=== PATIENT | female | born 1940 | race Caucasian/White ===

== ENCOUNTER 2018-02-18 09:54 | Emergency (ER) | payer MEDICARE ==
[~2018-02-18] VITALS: Ht 177.8 cm; Wt 81.3 kg
[2018-02-18 09:57] VITALS: BP 196/82; PULSE 70; RESP 16; TEMP 97.4; O2SAT 98
[2018-02-18] MEDS ORDERED: PROT40TA PO (10:11)
[2018-02-18] MEDS ORDERED: LOSA100T PO (10:11)
[2018-02-18] MEDS ORDERED: LEVO100T5 PO (10:11)
[2018-02-18] MEDS ORDERED: DICL75TA PO (10:11)
[2018-02-18] MEDS ORDERED: FOSA70TA PO (10:11)
[2018-02-18] MEDS ORDERED: IBUPROFEN 600 MG TAB PO ONE (10:30)
--- NOTE | 2018-02-18 10:49 | PD ---
HPI Chief Complaint: Injury Time Seen by Provider: 10:16 Travel History International Travel<30 days: No Contact w/Intl Traveler<30days: No Traveled to known affect area: No History of Present Illness HPI 77-year-old female presents emergency department for evaluation of right wrist pain and low back pain after mechanical fall that occurred today. Says she was in the garage when she slipped and fell landing on her back and wrist. Says that she initially went to urgent care but they recommended she come to the emergency department for further evaluation and treatment. Patient points to the wrist with most pain is. Denies radiation of pain. Pain is moderate in severity. Denies numbness or tingling the extremity. Denies pain elsewhere on the extremity. Patient points lower back that is worse with movement, decreases with rest. Denies loss of bowel or bladder function, numbness tingling the extremities Saddle anesthesia. Patient says that her low back pain is mild in severity and nonradiating. PFSH Past Medical History Arthritis: Yes Pneumonia: Yes Tetanus Vaccination: < 5 Years Influenza Vaccination: Yes Past Surgical History Appendectomy: Yes Section: Yes (X2) Hysterectomy: Yes Tonsillectomy: Yes Social History Alcohol Use: Yes (OCC) Tobacco Use: No Allergies-Medications (Allergen,Severity, Reaction): Coded Allergies: No Known Allergies (Unverified , 02/18/18) Reported Meds & Prescriptions Reported Meds & Active Scripts Active Hydrocodone-Acetaminophen 5-325 mg Tab 1 Tab PO Q6H PRN 3 Days Take 1/2 to 1 tab every 6 hours as needed for pain. Reported Fosamax (Alendronate Sodium) 70 Mg Tab 70 Mg PO Q7D Losartan (Losartan Potassium) 100 Mg Tab 100 Mg PO DAILY Diclofenac Sodium DR (Diclofenac Sodium) 75 Mg Tabdr 75 Mg PO DAILY Levothyroxine (Levothyroxine Sodium) 100 Mcg Tab 100 Mcg PO DAILY Protonix (Pantoprazole Sodium) 40 Mg Tab 40 Mg PO DAILY Review of Systems Except as stated in HPI: all other systems reviewed are Neg Physical Exam Narrative GENERAL: Well-nourished, well-developed patient, in NAD SKIN: Focused skin assessment warm/dry. No rashes or lesions. HEAD: Normocephalic. Atraumatic. EYES: No scleral icterus. No injection or drainage. PERRLA, EOMI THROAT: No pharyngeal injection, exudates, or tonsillar hypertrophy. Airway is patent. NECK: Supple, trachea midline. No JVD or lymphadenopathy. No meningismus. No midline tenderness CARDIOVASCULAR: Regular rate and rhythm without murmurs, gallops, or rubs. RESPIRATORY: Breath sounds equal bilaterally. No accessory muscle use. No wheezes, rales, or rhonchi MUSCULOSKELETAL: No cyanosis, or edema. Right wrist-edema present, slight dorsal deformity. No tenderness palpation to the right upper extremity other than mentioned. neurovascularly intact BACK: No CVA tenderness. No rash. Mild point tenderness on palpation of the spine located lower left lumbar area. Data Data Last Documented VS Vital Signs Date Time Temp Pulse Resp B/P (MAP) Pulse Ox O2 Delivery O2 Flow Rate FiO2 02/18/18 09:57 97.4 70 16 196/82 (120) 98 Orders Orders Wrist, Complete ([id number]) (02/18/18 ) Spine, Lumbar Comp W/Obliq (02/18/18 ) Ibuprofen (Motrin) (02/18/18 10:30) Support Splint (02/18/18 11:34) Ed Discharge Order (02/18/18 11:54) Fiberglass Sugartong Sp Ad Arm (02/18/18 ) Sling Cradle Arm (02/18/18 ) MDM Medical Decision Making Medical Screen Exam Complete: Yes Emergency Medical Condition: Yes Differential Diagnosis Right wrist contusion, bursitis, cellulitis, fracture, osteonecrosis, avascular necrosis, sprain, strain: lumbago, sciatica, muscle spasms, fracture, cauda equina syndrome Narrative Course 77-year-old female presents to emergency for evaluation of right wrist pain after fall that occurred today. Physical demonstrates a slight angulation of the right wrist dorsally but otherwise neurovascular intact. Patient does have low back pain secondary to fall. Imaging ordered to rule out acute process. Ibuprofen administered in the emergency department today for pain. Last Impressions Wrist X-Ray 02/18/18 0000 Signed Impressions: Service Date/Time: Sunday, February 18, 2018 10:41 - CONCLUSION: Moderately angulated Colles' fracture of the distal right radius Chirag Mccollum MD Lumbar Spine X-Ray 02/18/18 0000 Signed Impressions: Service Date/Time: Sunday, February 18, 2018 10:41 - CONCLUSION: No acute bony injury Chirag Mccollum MD My attending, Dr. Esparza discussed the findings of the wrist x-ray with the orthopedic physician. He recommended patient be placed in a sugar tong splint and follow-up with orthopedist. She says her has been treated by Dr. Lewis and they will go to his office today. Hydrocodone for pain. Advised to use caution this medication. Return for worsening or persistent symptoms. Diagnosis Primary Impression: Colles' fracture Qualified Codes: S52.531A - Colles' fracture of right radius, initial encounter for closed fracture Referrals: Orthopedist Additional Instructions: Use ice or heat for symptom relief. If no contraindications, you may use Motrin per package instructions for your pain. Elevate the joint above the heart to reduce swelling. Leave the splint in place until evaluated by an orthopedic physician. Use caution when taking hydrocodone as it may make you feel drowsy. Take at night initially for tolerance. If symptoms persist or worsen, return to the emergency department. Follow up with your primary care physician within 2 days. Scripts Hydrocodone-Acetaminophen (Hydrocodone-Acetaminophen) 5-325 mg Tab 1 TAB PO Q6H Y for PAIN for 3 Days, #12 TAB 0 Refills Take 1/2 to 1 tab every 6 hours as needed for pain. Prov: Hari Laguna MD 02/18/18 Disposition: 01 DISCHARGE HOME Condition: Stable Alecia Maldonado February 18, 2018 10:49
--- NOTE | 2018-02-18 11:00 | RADRPT ---
EXAM DATE/TIME: 02/18/2018 10:41 [facility] COMPARISON: No previous studies available for comparison. INDICATIONS : Fall, right wrist pain. MEDICAL HISTORY : None. SURGICAL HISTORY : None. ENCOUNTER: Initial ACUITY: 1 day PAIN SCORE: 10/10 LOCATION: Right wrist FINDINGS: Examination does a moderately angulated and moderately impacted Colles' configuration fracture of the distal right radius. A tiny ossific fragment adjacent to the ulnar styloid may also be an acute inju ry at this location. The carpals appear grossly intact. There is mild baseline arthritic change. CONCLUSION: Moderately angulated Colles' fracture of the distal right radius Chirag Mccollum MD on February 18, 2018 at 10:57 Board Certified Radiologist. This report was verified electronically.
--- NOTE | 2018-02-18 11:03 | RADRPT ---
EXAM DATE/TIME: 02/18/2018 10:41 [facility] COMPARISON: No previous studies available for comparison. INDICATIONS : Fall, low back pain. MEDICAL HISTORY : None. SURGICAL HISTORY : None. ENCOUNTER: Initial ACUITY: 1 day PAIN SCORE: 5/10 LOCATION: low back FINDINGS: Slight right convex thoracolumbar scoliosis. There is slight anterolisthesis of L4 relative to L5 and of L5 relative to S1. Severe disc space narrowing is present at L5-S1. Small primarily ventral endpl ate osteophytes are present. There is no evidence of fracture. Vertebral body height is well preserve d throughout. The oblique views reveal satisfactory alignment of the posterior facets. Moderate poste rior facet arthropathy is present in the lower lumbar levels. CONCLUSION: No acute bony injury Chirag Mccollum MD on February 18, 2018 at 10:58 Board Certified Radiologist. This report was verified electronically.
[2018-02-18] MEDS ORDERED: HYDR-3516 PO ×2 (11:39→11:47)
--- NOTE | 2018-02-20 10:05 | MH ---
cc: Juana Garrido MD DATE OF ADMISSION: 02/22/2018 ADMISSION DIAGNOSIS: Colles' fracture right wrist, now being admitted for open reduction internal fixation. HISTORY OF PRESENT ILLNESS: This is a pleasant 77-year-old female who is being admitted today for open reduction internal fixation of an angulated comminuted fracture of the right distal radius which she sustained on 02/18/2018 in a trip and fall at home. OTHER PAST HISTORY: The patient has a history of hypothyroidism and arthritis. CURRENT MEDICATIONS: 1. Voltaren, which she stopped before surgery. 2. Losartan 3. Crestor. 4. Protonix. 5. Levothyroxine. PAST SURGICAL HISTORY: Previous surgeries includes appendectomy and hysterectomy. REVIEW OF SYSTEMS: Noncontributory. FAMILY HISTORY: Noncontributory. SOCIAL HISTORY: She does not smoke or drink. ALLERGIES: NO KNOWN DRUG ALLERGIES. PHYSICAL EXAMINATION: GENERAL: We find a 77-year-old female well-developed, well-nourished alert and oriented x 3 complaining of pain in her right wrist. VITAL SIGNS: Blood pressure 144/84, pulse 68 and regular, respirations 18, temperature 98.3, pulse oximetry 95% on room air. HEENT: Eyes PERRLA, EOMI. Ears, nose, and mouth clear. NECK: Supple. LUNGS: Clear. HEART: Regular rate. ABDOMEN: Soft, positive bowel sounds, nontender. EXTREMITIES: Reveal the right wrist to be tender with deformity noted. Neurovascularly intact to her fingers. SKIN: Intact. IMPRESSION AT THIS TIME: Angulated fracture, right distal radius. PLAN: Admission to same day surgery for open reduction internal fixation of the right distal radius fracture today. The patient given a prescription for postoperative pain control in the office. J. Quentin Garrido MD JRR/DL , 09:48 AM , 10:04 AM
[2018-02-22] MEDS ORDERED: IBUP-232 PO (11:27)
[2018-02-22] MEDS ORDERED: ROSU20 PO (11:27)
[2018-02-22] MEDS ORDERED: TRAM50TA PO (11:27)
== END 2018-02-18 12:10 | disposition home or self-care (01) ==
LOC: PHEFT 09:54
DX: S52.531A Colles' fracture of right radius, initial encounter for closed fracture (principal); M19.90 Unspecified osteoarthritis, unspecified site; M54.5 Low back pain; W01.0XXA Fall on same level from slipping, tripping and stumbling without subsequent striking against object, initial encounter; Y92.008 Other place in unspecified non-institutional (private) residence as the place of occurrence of the external cause
CPT/HCPCS: 72110; 73110; 99283

== ENCOUNTER → 2018-02-22 | Day surgery (SDC) | payer MEDICARE ==
[~2018-02-22] VITALS: Ht 177.8 cm; Wt 77.2 kg
[~2018-02-22] MED LIST: ACETAMINOPHEN/HYDROcodone 325 MG/5 MG TAB ONE; BUPIVACAINE HCL PF 0.5% 10 ML VIAL ONE; CHLORHEXIDINE GLUCONATE 2 % 1 PACK (2 CLOTHS) TOPICAL PRN; DICL75TA PO; FOSA70TA PO; HYDR-3516 PO; IBUP-232 PO; LACTATED RINGER'S 1000 ML IV PRN; LEVO100T5 PO; LIDOCAINE HCL 2% 50 ML VIAL ONE; LOSA100T PO; METOPROLOL TARTRATE 25 MG TAB PO PRN; MORPHINE SULFATE 2 MG/ML SYRINGE ONE; MORPHINE SULFATE 4 MG/ML INJ ONE; POVIDONE IODINE 5% (ANTISEPSIS KIT) 4 APPLICATIONS EACH NARE PRN; POVIDONE IODINE 7.5% SCRUB 118 ML BOTTLE TOPICAL SCH; PROT40TA PO; ROSU20 PO; SODIUM CHLORID 0.9% 500 ML IV PRN; TRAM50TA PO; ceFAZolin 2 GM PREMIX 50 ML IV SCH
--- NOTE | 2018-02-22 15:18 | HHI.PR ---
Immediate Post Op Note Procedure Date: February 22, 2018 Pre Op Diagnosis: Right wrist fracture 2 components Post Op Diagnosis: Right wrist fracture 2 components Surgeon: Nghia Garrido MD Micro Computer Specialist(s): Hortencia MONROY Procedure: Right Open reduction internal fixation of right wrist fracture Specimen(s) removed: none Estimated blood loss: <10cc Anesthesia: General Drains: None IVF Urinary Output (mLs): 0 (no magana) Tourniquet time (min at mmHg) 50 mins at 250 mmHg Patient to: SDS Patient Condition: Good Implant/Devices: SEE IMPLANT LOG (if applicable) Date/Time of Procedure: SEE SURGICAL CARE RECORD Hortencia Contreras February 22, 2018 15:18
--- NOTE | 2018-02-22 15:41 | MP ---
cc: Juana Garrido MD DATE OF OPERATION: 02/22/2018 DATE OF SURGERY: 02/22/2018 PREOPERATIVE DIAGNOSIS: Fracture right distal radius. POSTOPERATIVE DIAGNOSIS: Fracture right distal radius. PROCEDURE PERFORMED: Open reduction, internal fixation of right distal radius fracture with Synthes plate and screws. SURGEON: Juana Garrido. DATA CONVERSION ANALYST: PORFIRIO Wang ANESTHESIA: General intubation. PROCEDURE: The patient was brought to the operating room, placed on the operating table in supine position. After successful induction of general anesthesia, the patient's right wrist and forearm were prepped and draped in the usual manner. Tourniquet inflated about the right upper arm and set to 250 mmHg pressure after exsanguination of the right upper extremity. A longitudinal incision was then made from the proximal wrist crease proximally, 3 inches in length, carried down through the subcutaneous tissue staying ulnar to the radial artery and carried down through subcutaneous tissue and fascia to expose the periosteum of the fracture site. We removed the periosteal elevator. The wrist was reduced and held reduced while a wrist plate was firmly affixed to the bone, 4 holes distal and 3 holes proximal to the fracture. After screws tightened, AP and lateral views revealed excellent reduction of the fracture with plate and screws in excellent position. The tourniquet was then deflated, total tourniquet time being 55 minutes at 250 mmHg pressure. The wound was irrigated copiously with lactated Ringer's solution, meticulous hemostasis achieved. Subcutaneous tissue was approximated with interrupted 3-0 Monocryl suture and the skin approximated with interrupted 4-0 Monocryl suture, Steri-Strips, sterile dressing and volar splint. 2 mL 0.25% Marcaine plain was used around the skin for extra pain control. ESTIMATED BLOOD LOSS: 5 mL COUNTS: Sponge and suture counts were correct. CONDITION: The patient tolerated the procedure well and left the operating room in satisfactory condition. NOTE: PORFIRIO Wang, was present during the entire procedure do include the patient positioning and the procedure. The medical necessity of a nurse practitioner first assist was indicated in this case due to the surgical complexity of the case itself. During the surgical case, the switch technician was working the back table while my insurance administrative assistant PORFIRIO was directly assisting me. J. MD NEERU Chatterjee/COREEN , 02:59 PM , 03:41 PM
[2018-02-22 17:00] VITALS: BP 124/62; PULSE 65; RESP 16; TEMP 98.1; O2SAT 99
--- NOTE | 2018-02-22 17:59 | EKG ---
Date Performed: 02/22/2018 Time Performed: 11:54:12 PTAGE: 77 years EKG: Sinus rhythm NORMAL ECG NO PREVIOUS TRACING DOCTOR: Jeri Desai Interpretating Date/Time 02/22/2018 17:57:36
== END | disposition home or self-care (01) ==
LOC: PHSDC 09:49
PROVIDERS: ATTEND Surgery
DX: S52.501A Unspecified fracture of the lower end of right radius, initial encounter for closed fracture (principal); Z01.810 Encounter for preprocedural cardiovascular examination
CPT/HCPCS: 01830; 25608; 76000; 93005; C1713; J0690; J2270; J3010; J7120